=== PATIENT | female | born 1975 | race Caucasian/White ===

== ENCOUNTER 2017-02-14 21:02 | Observation (INO) | payer MEDICARE, MEDICAID ==
[~2017-02-14] VITALS: Ht 165.1 cm; Wt 59.4 kg
[2017-02-14 21:51] LABS: BASO # 0.1 (0.0-0.2); EOS # 0.1 (0.0-0.7); EOS % 1.2 % (0-4.0); GRAN # 2.2 (1.4-6.5); GRAN % 41.4 % (42.2-75.2); HEMATOCRIT 38.2 % (37.0-47.0); HEMOGLOBIN 13.3 g/dl (12.5-16.0); LYMPH # 2.4 (1.2-3.4); LYMPH % 46.2 % (20.0-51.0); MEAN CELL VOLUME 90 fl (80.0-100.0); MEAN CORPUSCULAR HEMOGLOBIN 31 pg (27.0-31.0); MEAN CORPUSCULAR HGB CONC 35 g/dl (33.0-37.0); MEAN PLATELET VOLUME 9.3 fl (7.4-10.4); MONO # 0.5 (0.1-0.6); PLATELET COUNT 320 K/mm3 (130-400); RED BLOOD COUNT 4.24 M/mm3 (4.10-5.30); REDCELL DISTRIBUTION WIDTH-CV 12.6 % (11.5-14.5); WHITE BLOOD COUNT 5.2 K/mm3 (4.8-10.8)
[2017-02-14 22:03] LABS: ADJUSTED CALCIUM 9.4 mg/dL (8.4-10.2); ALANINE AMINOTRANSFERASE 440 U/L (9-52); ALBUMIN 4.7 gm/dL (3.5-5.0); ALKALINE PHOSPHATASE 192 U/L (50-136); ANION GAP 14 mmol/L (7-16); BILIRUBIN,TOTAL 0.8 mg/dL (0.0-1.0); BLOOD UREA NITROGEN 10 mg/dL (7-17); CARBON DIOXIDE 23 mmol/L (22-30); CHLORIDE 107 mmol/L (98-107); CREATININE, serum 0.74 mg/dL (0.52-1.25); GLUCOSE 83 mg/dL (74-106); POTASSIUM 3.5 mmol/L (3.4-5.0); SODIUM 144 mmol/L (137-145); TOTAL PROTEIN 7.3 gm/dL (6.4-8.2)
[2017-02-14 22:04] LABS: ACETAMINOPHEN < 10 ug/mL (10-30); SALICYLATE < 1.0 mg/dL
[2017-02-14 22:27] LABS: BENZODIAZEPINES URINE POSITIVE; OXYCODONE URINE POSITIVE; THC CANNABINOIDS URINE POSITIVE
[2017-02-14 22:28] LABS: AMPHETAMINE URINE NEGATIVE; BARBITURATES URINE NEGATIVE; METHADONE URINE NEGATIVE; OPIATES URINE NEGATIVE; PHENCYCLIDINE URINE NEGATIVE; PROPOXYPHENE URINE NEGATIVE
[2017-02-14] MEDS ORDERED: SODIUM CHLORIDE1 GM PO (22:30)
[2017-02-14] MEDS ORDERED: INDERAL 10MG10 MG PO ×2 (22:31→22:33)
[2017-02-14] MEDS ORDERED: KLONOPIN 1MG1 MG PO (22:31)
[2017-02-14] MEDS ORDERED: ZANAFLEX2 MG PO (22:31)
[2017-02-14] MEDS ORDERED: ROXICODONE 55 MG/TAB PO (22:31)
[2017-02-14] MEDS ORDERED: TRILEPTAL600 MG PO (22:32)
[2017-02-14] MEDS ORDERED: SEROQUEL400 MG PO (22:32)
[2017-02-14] MEDS ORDERED: SEROQUEL50 MG PO (22:32)
[2017-02-14] MEDS ORDERED: MOBIC15 MG PO (22:32)
[2017-02-14] MEDS ORDERED: NEURONTIN600 MG/TAB PO (22:32)
[2017-02-14] MEDS ORDERED: LYRICA 50MG CAP50 MG PO (22:32)
[2017-02-15 09:00] VITALS: BP 93/61; PULSE 69; TEMP 97.5
[2017-02-15 15:57] LABS: ADJUSTED CALCIUM 9.2 mg/dL (8.4-10.2); ALBUMIN 4.1 gm/dL (3.5-5.0); BILIRUBIN,TOTAL 0.6 mg/dL (0.0-1.0); CALCIUM 9.3 mg/dL (8.4-10.2); CREATININE, serum 0.62 mg/dL (0.52-1.25); POTASSIUM 3.9 mmol/L (3.4-5.0); TOTAL PROTEIN 6.2 gm/dL (6.4-8.2)
[2017-02-15 17:49] LABS: PH 5 (5-8); SQUAMOUS EPITHELIAL 0-2 /hpf; URINE APPEARANCE Hazy; URINE BACTERIA None Seen /hpf; URINE BILIRUBIN Negative (NEGATIVE); URINE BLOOD Negative (NEGATIVE); URINE COLOR Yellow; URINE GLUCOSE Negative (NEGATIVE); URINE KETONE Trace (NEGATIVE); URINE UROBILINOGEN Negative (NEGATIVE)
[2017-02-15 21:00] VITALS: BP 100/75; PULSE 67; TEMP 97.1
[2017-02-16 07:08] LABS: ADJUSTED CALCIUM 9.3 mg/dL (8.4-10.2); ALBUMIN 4.2 gm/dL (3.5-5.0); BILIRUBIN,TOTAL 0.5 mg/dL (0.0-1.0); CALCIUM 9.5 mg/dL (8.4-10.2); CREATININE, serum 0.77 mg/dL (0.52-1.25); POTASSIUM 3.4 mmol/L (3.4-5.0); TOTAL PROTEIN 6.5 gm/dL (6.4-8.2)
[2017-02-16 08:30] VITALS: BP 115/70; PULSE 89; TEMP 98.9
[2017-02-16 21:00] VITALS: BP 109/71; PULSE 78; TEMP 98.1
[2017-02-17 06:40] LABS: ADJUSTED CALCIUM 9.6 mg/dL (8.4-10.2); ALBUMIN 3.5 gm/dL (3.5-5.0); BILIRUBIN,TOTAL 0.4 mg/dL (0.0-1.0); CALCIUM 9.2 mg/dL (8.4-10.2); CREATININE, serum 0.71 mg/dL (0.52-1.25); MAGNESIUM 1.8 mg/dL (1.6-2.3); POTASSIUM 4.3 mmol/L (3.4-5.0); TOTAL PROTEIN 5.8 gm/dL (6.4-8.2)
[2017-02-17 07:09] LABS: BILIRUBIN,DIRECT 0.3 mg/dL (0.0-0.4); THYROID STIMULATING HORMONE 1.38 uIU/mL (0.465-4.680)
[2017-02-17 09:00] VITALS: BP 130/90; PULSE 89; TEMP 98.7
[2017-02-17] MEDS ORDERED: MIRALAX PA17 GM/Dose PO ×2 (13:53→13:54)
[2017-02-17] MEDS ORDERED: THORAZINE100 MG/TAB PO ×2 (13:53)
[2017-02-17] MEDS ORDERED: FLONASE NASAL S16 GM NS (13:53)
[2017-02-17] MEDS ORDERED: CIPRO 500MG TA500 MG PO (13:54)
[2017-02-17] MEDS ORDERED: NICODERM C21 MG/PATC TD (13:54)
[2017-02-17] MEDS ORDERED: ATIVAN2 MG PO (13:54)
[2017-02-17] MEDS ORDERED: MOTRIN 600600 MG/TAB PO (13:55)
== END 2017-02-17 14:25 ==
LOC: COL.ER 21:02 → ICU 02-15 06:54
PROVIDERS: Emergency Medicine; Internal Medicine; Psychiatry & Neurology Psychiatry
DX: F31.2 Bipolar disorder, current episode manic severe with psychotic features (principal); N39.0 Urinary tract infection, site not specified
CPT/HCPCS: 90791-AI; 99223; 99223-AI; 99232-AI; G0378